=== PATIENT | male | born 1960 | race Caucasian/White ===

== ENCOUNTER → 2025-03-01 | Outpatient (CLI) | payer BC ==
[~2025-03-01] MED LIST: LIDOCAINE 1% MDV 20 ML VIAL As Ordered ONE; LIDOCAINE 1% MDV 20 ML VIAL SC ONE; ceFAZolin SODIUM 2 GM in DEXTROSE 5% (D5W) ADV/MINI-BAG 50 ML IV ONE
[2025-03-01 15:04] VITALS: BP 143/85; TEMP 99.1; O2SAT 96
== END ==
LOC: M IRPRO 14:39
PROVIDERS: ATTEND Physical Medicine & Rehabilitation
DX: M25.412 Effusion, left shoulder (principal)